=== PATIENT | female | born 1985 | race African-American/Black ===

== ENCOUNTER 2017-11-07 10:04 | Emergency (ER) | payer OTHER ==
[2017-11-07 10:10] VITALS: BP 104/67; PULSE 88; TEMP 98.6; BMI 28.9
[2017-11-07 10:57] LABS: HCG,QUALITATIVE URINE Positive
[2017-11-07 10:59] LABS: URINE APPEARANCE CLEAR; URINE BILIRUBIN NEGATIVE (<2.0 mg/dL); URINE COLOR STRAW; URINE GLUCOSE (UA) NEGATIVE (NEGATIVE); URINE KETONE NEGATIVE (NEGATIVE); URINE LEUK ESTERASE NEGATIVE (NEGATIVE); URINE NITRITE NEGATIVE (NEGATIVE); URINE PROTEIN NEGATIVE (NEGATIVE); URINE UROBILINOGEN NEGATIVE mg/dL (0.2-1.0)
--- NOTE | 2017-11-07 11:17 | PDOC ---
History of Present Illness - General Chief Complaint: Pain Stated Complaint: ABD PAIN () Time Seen by Provider: 11/07/17 10:15 History Source: Patient Exam Limitations: No Limitations - History of Present Illness Travel History: No Initial Comments: 11/07/17 11:15 32 yr female states 10 weeks noticed spotting yesterday light pink, no bleeding today has lower suprapubic pain and discomfort. Denies back pain neg nvd neg urinary complaints. uncomplicated so far. Quality: reports: cramping Abdominal Pain Onset Location: reports: suprapubic Pain Radiation: reports: no radiation Activities at Onset: reports: none Past History - Past Medical History Allergies/Adverse Reactions: Allergies Allergy/AdvReac Type Severity Reaction Status Date / Time No Known Allergies Allergy Verified 11/07/17 10:10 Home Medications: Ambulatory Orders Prenat 115/Iron Fum/Folic/Dss [ 19 Tablet] 1 each PO DAILY 11/07/17 COPD: No - Suicide/Smoking/Psychosocial Hx Smoking History: Never smoked *Physical Exam - Vital Signs Last Vital Signs Temp Pulse Resp BP Pulse Ox 98.6 F 88 18 104/67 100 11/07/17 10:07 11/07/17 10:07 11/07/17 10:07 11/07/17 10:07 11/07/17 10:07 - Physical Exam General Appearance: Yes: Nourished HEENT: positive: EOMI, AMILCAR Neck: positive: Supple Respiratory/Chest: positive: Lungs Clear, Normal Breath Sounds Cardiovascular: positive: Regular Rhythm, Regular Rate Gastrointestinal/Abdominal: positive: Normal Bowel Sounds, Tender (lower abd ), Soft, Tenderness. negative: Guarding Musculoskeletal: positive: Normal Inspection Extremity: positive: Normal Capillary Refill, Normal Inspection, Normal Range of Motion ED Treatment Course - ADDITIONAL ORDERS Additional order review: Laboratory Results 11/07/17 10:45 Urine Color Straw Urine Appearance Clear Urine pH 6.0 Ur Specific [place] 1.005 Urine Protein Negative Urine Glucose (UA) Negative Urine Ketones Negative Urine Blood Negative Urine Nitrite Negative Urine Bilirubin Negative Urine Urobilinogen Negative Ur Leukocyte Esterase Negative Urine HCG, Qual Positive - RADIOLOGY Radiology Studies Ordered: Category Date Time Status TRANSVAGINAL US PREG [US] Stat Ultrasound 11/07/17 10:47 Ordered Medical Decision Making - Medical Decision Making 11/07/17 11:16 cc: lower abd pain no vag bleeding or discharge, had some spotting yesterday will check UA US 11/07/17 13:04 US resulted and results discussed copy of the report given to patient she will follow with her flap curer this week pt is aware to return to ER for any worsening symptoms *DC/Admit/Observation/Transfer Diagnosis at time of Disposition: Subchorionic hematoma in first trimester Qualifiers: Fetus number: single or unspecified fetus Qualified Code(s): O41.8X10 - Other specified disorders of amniotic fluid and membranes, first trimester, not applicable or unspecified - Discharge Dispostion Disposition: HOME Condition at time of disposition: Good - Referrals Referrals: Alyx Garcia [Primary Care Provider] - - Patient Instructions Additional Instructions: please follow with your flap curer/OB doctor this week avoid heavy lifting or pushing until cleared by your doctor no sexual activity until cleared by your doctor Return to ER for any worsening pain or bleeding or any other concerns - Post Discharge Activity Forms/Work/School Notes: Back to Work
== END 2017-11-07 13:04 | disposition home or self-care (01) ==
LOC: JERFT 10:04
DX: O41.8X10 Other specified disorders of amniotic fluid and membranes, first trimester, not applicable or unspecified (principal); O26.891 Other specified pregnancy related conditions, first trimester; Z3A.10 10 weeks gestation of pregnancy
CPT/HCPCS: 76801-TC; 81003; 84703; 87086; 99281-25

== ENCOUNTER 2018-01-04 02:44 | Emergency (ER) | payer OTHER ==
[2018-01-04 03:28] VITALS: BP 101/55; PULSE 79; TEMP 97.4; BMI 28.7
--- NOTE | 2018-01-04 04:34 | PDOC ---
Attending Attestation - Resident Resident Name: Shilpa Pierre - ED Attending Attestation I have performed the following: I have examined & evaluated the patient, The case was reviewed & discussed with the resident, I agree w/resident's findings & plan, Exceptions are as noted - HPI HPI: 01/04/18 04:52 32 yo F presenting with pelvic pain which worsens with sitting or standing Pain is located bilaterally Symptoms began 6pm No prior episodes like this No discharge, no dysuria Saw bicycle rental clerk 3 weeks ago, was nml No nausea or vomiting No dizziness No h/o STD 01/04/18 04:55 - Physicial Exam PE: 01/04/18 04:54 GENERAL: The patient is in no acute distress. LUNGS: Breath sounds equal, clear to auscultation bilaterally. No wheezes, and no crackles. HEART:Regular rate and rhythm ABDOMEN: Soft, nontender, normoactive bowel sounds. EXTREMITIES: Normal range of motion NEUROLOGICAL: Cranial nerves II through XII grossly intact. Normal speech. No focal neurological deficits. MUSCULOSKELETAL: Back non-tender to palpation SKIN: Warm, Dry, normal turgor, no rashes or lesions noted. - Medical Decision Making Pt unable to stay in the ER for either her lab results or for an US She states that she has to picker feeder her kids and bring them to school She is leaving the ER AMA as we can not yet rule out possible causes of her pelvic pain She will be returning to the ER for re assessment this morning after dropping her children off to school Note: The patient insists on leaving the emergency dept and is signing out against medical advice. The patient understands the risks and complications that may result from the refusal of medical care and admission which includes and permanent disability. The patient has the mental capacity of understanding the risks of refusing care and is capable of making an informed decision. The patient was instructed to return to the emergency department should she change her mind regarding medical care or should her condition worsen. The patient signed the Against Medical Advice form.
[2018-01-04] MEDS ORDERED: ACETAMINOPHEN 325 MG TABLET (FP) PO ONE (05:01)
[2018-01-04] MEDS ORDERED: ACETAMINOPHEN 325 MG TABLET (FP) ONE (05:11)
--- NOTE | 2018-01-04 05:50 | PDOC ---
History of Present Illness - General Chief Complaint: Pain Stated Complaint: ABD PAIN, 18 WKS Time Seen by Provider: 01/04/18 04:32 History Source: Patient - History of Present Illness Initial Comments: 01/04/18 21:50 32F, G3T3L3, w/ no significant pmhx presents with 1 day history of pelvic pain. She rates the pain 8/10 and is worse when sitting/standing, but alleviated when laying down. She is currently 18 weeks (last seen CASINO CONTROLLER 3 weeks ago IUP confirmed by ultrasound). Her pelvic pain started while she was walking during walk. Admits to headache, but denies dizziness, n/v. She also complaints of associated F leg pain. Denies urinary/bowel symptoms, blood in urine/stool, vaginal discharge/bleeding. Pt currently takes Zyrtec for allergies and vitamins. PMHx: Denies PSHx: Denies FHx: Denies Social: Former smoker, quit 6 months ago, 2 cigarettes/day. 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 Denies recent travel. Past History - Past Medical History Allergies/Adverse Reactions: Allergies Allergy/AdvReac Type Severity Reaction Status Date / Time No Known Allergies Allergy Verified 01/04/18 09:28 Home Medications: Ambulatory Orders Prenat 115/Iron Fum/Folic/Dss [ 19 Tablet] 1 each PO DAILY 11/07/17 COPD: No - Suicide/Smoking/Psychosocial Hx Smoking History: Never smoked Have you smoked in the past 12 months: No Information on smoking cessation initiated: No Hx Alcohol Use: No Drug/Substance Use Hx: No Review of Systems - Review of Systems Able to Perform ROS?: Yes Is the patient limited Iranian proficient: No Constitutional: No: Chills, Fever HEENTM: No: Recent change in vision Respiratory: No: Shortness of Breath, Wheezing Cardiac (ROS): No: Chest Pain, Lightheadedness, Chest Tightness ABD/GI: No: Constipated, Diarrhea, Nausea, Vomiting : No: Burning, Dysuria, Discharge, Hematuria, Pain *Physical Exam - Vital Signs Last Vital Signs Temp Pulse Resp BP Pulse Ox 97.4 F L 79 19 101/55 L 98 01/04/18 02:45 01/04/18 02:45 01/04/18 02:45 01/04/18 02:45 01/04/18 02:45 - Physical Exam General Appearance: Yes: Nourished, Appropriately Dressed HEENT: positive: EOMI, AMILCAR, Normal Voice Neck: positive: Supple Cardiovascular: positive: Regular Rhythm, Regular Rate, S1, S2. negative: Edema , Murmur Vascular Pulses: Dorsalis-Pedis (R): 2+, Doralis-Pedis (L): 2+ Female Pelvic Exam: positive: normal external exam, cervical os closed, normal adnexa, discharge (white). 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 II-XII NML intact, Fully Oriented, Alert, Normal Response, Motor Strength 06/26 ED Treatment Course - LABORATORY CBC & Chemistry Diagram: 01/04/18 05:36 01/04/18 05:36 - RADIOLOGY Radiology Studies Ordered: Category Date Time Status LIMITED US [US] Stat Ultrasound 01/04/18 04:55 Ordered - Medications Given in the ED: ED Medications Discontinued Medications Generic Name Dose Route Start Last Admin Trade Name Freq PRN Reason Stop Dose Admin Acetaminophen 650 mg 01/04/18 05:01 01/04/18 05:14 Tylenol - PO 01/04/18 05:02 650 mg ONCE ONE Administration Medical Decision Making - Medical Decision Making 01/04/18 6:05 32F currently 18 weeks (G3T3L3) w/ no significant pmhx presents with 1 day history of pelvic pain. -Will obtain pelvic ultrasound to r/o acute pathology such as appendicitis, ovarian torsion, ruptured ovarian cyst, abscess. -CBC/CMP, U/A, UCx -Tylenol for pain ordered 01/04/18 6:30 -Pelvic exam perfomed, no CMT or adnexal tenderness. White discharge noted, culture taken and sent to lab. 01/04/18 6:35 -Pt stable. Informed pt of recommendation to get a ultrasound to r/o acute causes of new onset pelvic pain. Pt deferred ultrasound at this time as she needed to go home. Signed out AMA and explained risks of leaving prior to necessary work up. Advised patient to return to the ED if she has persistent or worsening symptoms. Case discussed with Dr. Myles (ED attending). -Shilpa Pierre, DO - PGY1 *DC/Admit/Observation/Transfer Diagnosis at time of Disposition: Pelvic pain - Discharge Dispostion Disposition: AGAINST MEDICAL ADVICE Condition at time of disposition: Good Decision to Admit order: No - Referrals - Patient Instructions Printed Discharge Instructions: DI for Pelvic Pain Additional Instructions: You were seen in the ED for complaints of pelvic pain. You were evaluated and recommended to have a ultrasound. You are signing out against medical advice. You have been made aware of the risks in doing so which conditions/complications including but not limited to untreated tubo-ovarian abscess, ovarian torsion, ruptured ovarian cyst, appendicitis, or . Please feel free to return to the Emergency Department at any time for further evaluation of your symptoms. - Post Discharge Activity
[2018-01-04 05:55] LABS: BASO % 0.5 % (0-2.0); EOS % 1.6 % (0-4.5); HEMATOCRIT 35.6 % (32.4-45.2); HEMOGLOBIN 11.5 GM/dL (10.7-15.3); LYMPH % 17.6 % (8-40); MCH 28.4 pg (25.7-33.7); MCHC 32.3 g/dl (32.0-36.0); MEAN PLT VOLUME 8.4 fl (7.5-11.1); MONO % 8.9 % (3.8-10.2); NEUT % 71.4 % (42.8-82.8); PLATELET COUNT 217 K/MM3 (134-434); RBC 4.05 M/mm3 (3.60-5.2); WHITE BLOOD COUNT 11.3 K/mm3 (4.0-10.0)
[2018-01-04 06:29] LABS: ALBUMIN 3.5 g/dl (3.4-5.0); ALK PHOS 68 U/L (45-117); ANION GAP 6 MMOL/L (8-16); BILIRUBIN,TOTAL 0.2 mg/dL (0.2-1); BLOOD UREA NITROGEN 9 mg/dL (7-18); CALCIUM 8.3 mg/dL (8.5-10.1); CHLORIDE 105 mmol/L (98-107); CO2 24 mmol/L (21-32); CREATININE 0.5 mg/dL (0.55-1.3); GLUCOSE,RANDOM 70 mg/dL (74-106); POTASSIUM 3.8 mmol/L (3.5-5.1); SGOT/AST 26 U/L (15-37); SGPT/ALT 41 U/L (13-61); SODIUM 135 mmol/L (136-145); TOT PROT 6.7 g/dl (6.4-8.2)
== END 2018-01-04 05:51 | disposition left against medical advice (07) ==
LOC: JER 02:44
DX: O26.892 Other specified pregnancy related conditions, second trimester (principal); R10.30 Lower abdominal pain, unspecified; Z3A.18 18 weeks gestation of pregnancy
CPT/HCPCS: 36415; 80053; 82550; 84484; 84703; 85025; 99281-25

== ENCOUNTER 2018-01-04 09:22 | Emergency (ER) | payer OTHER ==
[2018-01-04 09:31] VITALS: BMI 28.7
--- NOTE | 2018-01-04 10:03 | PDOC ---
History of Present Illness - General Chief Complaint: Pain, Acute Stated Complaint: ABD PAIN Time Seen by Provider: 01/04/18 09:52 History Source: Patient - History of Present Illness Timing/Duration: reports: other (yesterday) Abdominal Pain Onset Location: reports: other (lower abd) Past History - Past Medical History Allergies/Adverse Reactions: Allergies Allergy/AdvReac Type Severity Reaction Status Date / Time No Known Allergies Allergy Verified 01/04/18 09:28 Home Medications: Ambulatory Orders Prenat 115/Iron Fum/Folic/Dss [ 19 Tablet] 1 each PO DAILY 11/07/17 COPD: No - Immunization History Immunization Up to Date: Yes - Suicide/Smoking/Psychosocial Hx Smoking History: Never smoked Have you smoked in the past 12 months: No Information on smoking cessation initiated: No Hx Alcohol Use: No Drug/Substance Use Hx: No Substance Use Type: None Review of Systems - Review of Systems Constitutional: No: Chills, Fever ABD/GI: Yes: Abdominal cramping. No: Nausea, Vomiting : No: Dysuria, Flank Pain, Hematuria Musculoskeletal: No: Back Pain *Physical Exam - Vital Signs Last Vital Signs Temp Pulse Resp BP Pulse Ox 98.2 F 73 16 93/51 L 100 01/04/18 09:28 01/04/18 09:28 01/04/18 09:28 01/04/18 09:28 01/04/18 09:28 - Physical Exam General Appearance: Yes: Appropriately Dressed. No: Apparent Distress HEENT: positive: Normal Voice Neck: positive: Supple Respiratory/Chest: negative: Respiratory Distress Gastrointestinal/Abdominal: positive: Soft. negative: Tender Musculoskeletal: negative: CVA Tenderness Integumentary: positive: Dry, Warm Neurologic: positive: Fully Oriented, Alert, Normal Mood/Affect ED Treatment Course - RADIOLOGY Radiology Studies Ordered: Category Date Time Status OB LIMITED US [US] Stat Ultrasound 01/04/18 09:54 Ordered Medical Decision Making - Medical Decision Making 01/04/18 10:01 32-year-old female, , currently 18 weeks with unremarkable so far, follows up with OB at [facility] [place], here with mid lower abdominal pain since yesterday a.m., intermittent. No vaginal bleed, dysuria, flank pain , nausea, vomiting, fever or chills. Was seen in ED earlier this morning but left prior to UA and ultrasound because she had to take her kids to school. Now returns to continue evaluation. No change in sxs since prior ER visit. Of note labs were normal on prior visit. Pt well yessica w/ unremarkable exam. UA and US pending 01/04/18 13:53 Labs, UA and ultrasound were unremarkable. Of note, patient's blood pressure is 98/51. Based on prior records, patient runs ~ 100s/50s-60s. Patient asymptomatic at this time with no dizziness or weakness. Will discharge at this time to follow up with her OB. Reasons to return discussed with patient *DC/Admit/Observation/Transfer Diagnosis at time of Disposition: Abdominal pain affecting - Discharge Dispostion Disposition: HOME Condition at time of disposition: Good - Referrals - Patient Instructions Additional Instructions: Your labs, urine and ultrasound were normal. Take Tylenol every 6 hours as needed for pain and continue to follow-up with your OB - Post Discharge Activity
[2018-01-04 10:21] LABS: URINE APPEARANCE SLCLOUDY; URINE BILIRUBIN NEGATIVE (<2.0 mg/dL); URINE COLOR YELLOW; URINE GLUCOSE (UA) NEGATIVE (NEGATIVE); URINE KETONE 1+ (NEGATIVE); URINE LEUK ESTERASE NEGATIVE (NEGATIVE); URINE NITRITE NEGATIVE (NEGATIVE); URINE PROTEIN 1+ (NEGATIVE)
[2018-01-04 10:31] LABS: EPI CELLS FEW /HPF (FEW); URINE BACTERIA FEW /hpf (NONE SEEN); URINE MUCUS MANY
[2018-01-04 11:04] VITALS: BP 98/54; PULSE 78; TEMP 97.8
== END 2018-01-04 14:00 | disposition home or self-care (01) ==
LOC: JER 09:22
DX: O26.892 Other specified pregnancy related conditions, second trimester (principal); R10.30 Lower abdominal pain, unspecified; Z3A.18 18 weeks gestation of pregnancy
CPT/HCPCS: 76815; 81003; 81015; 99282-25

== ENCOUNTER 2018-03-10 21:16 | Emergency (ER) | payer OTHER ==
--- NOTE | 2018-03-10 21:24 | PDOC ---
Rapid Medical Evaluation Time Seen by Provider: 03/10/18 21:22 Medical Evaluation: Allergies Allergy/AdvReac Type Severity Reaction Status Date / Time No Known Allergies Allergy Verified 01/04/18 09:28 03/10/18 21:23 I have performed a brief in-person evaluation of this patient. The patient presents with a chief complaint of: Throat pain, ear pain, cough, 28 wks preg Pertinent physical exam findings: I have ordered the following: Rapid flu, rapid strep The patient will proceed to the ED for further evaluation.
[2018-03-10 21:27] VITALS: BMI 29.5
--- NOTE | 2018-03-10 21:28 | PDOC ---
History of Present Illness - General Chief Complaint: Cold Symptoms Stated Complaint: SINUS INFECTION-28 WEEKS Time Seen by Provider: 03/10/18 21:22 - History of Present Illness Initial Comments: 03/10/18 21:51 32-year-old female complaining of nasal congestion throat pain, left-sided facial pain for 3 days with occasional cough. Patient is 28 weeks and denies vaginal bleeding, abdominal pain, abdominal cramping, urinary symptoms. Patient reports " I feel like I have a sinus infection ". Past History - Past Medical History Allergies/Adverse Reactions: Allergies Allergy/AdvReac Type Severity Reaction Status Date / Time No Known Allergies Allergy Verified 03/10/18 21:26 Home Medications: Ambulatory Orders Prenat 115/Iron Fum/Folic/Dss [ 19 Tablet] 1 each PO DAILY 11/07/17 Amoxicillin - [Amoxicillin 875mg Tablet -] 875 mg PO BID #20 tablet 03/10/18 Sodium Chloride [Saline Nasal [place]] 30 ml NS QID PRN #1 spray 03/10/18 COPD: No - Immunization History Immunization Up to Date: Yes - Suicide/Smoking/Psychosocial Hx Smoking History: Never smoked Have you smoked in the past 12 months: No Information on smoking cessation initiated: No Hx Alcohol Use: No Drug/Substance Use Hx: No Substance Use Type: None Review of Systems - Review of Systems Able to Perform ROS?: Yes Is the patient limited Chilean proficient: No Constitutional: No: Symptoms Reported, See HPI, Chills, Diaphoresis, Fever, Loss of Appetite, Malaise, Night Sweats, Weakness, Weight Stable, Unintentional Wgt. Loss, Unexplained wgt Loss, Other HEENTM: Yes: Nose Congestion, Throat Pain Respiratory: Yes: Cough ABD/GI: No: Symptoms Reported, See HPI, Abdominal Distended, Abd. Pain w/ defecation, Blood Streaked Bowels, Constipated, Diarrhea, Difficulty Swallowing , Nausea, Poor Appetite, Poor Fluid Intake, Rectal Bleeding, Vomiting, Indigestion, Abdominal cramping, Tarry Stools, Other : No: Symptoms Reported, See HPI, Burning, Dysuria, Discharge, Frequency, Flank Pain, Hematuria, Incontinence, Pain, Urgency, Testicular Mass, Testicular Swelling, Lesions, Testicular Pain, Other *Physical Exam - Vital Signs Last Vital Signs Temp Pulse Resp BP Pulse Ox 98.6 F 90 18 108/68 98 03/10/18 21:24 03/10/18 21:24 03/10/18 21:24 03/10/18 21:24 03/10/18 21:24 - Physical Exam General Appearance: Yes: Appropriately Dressed HEENT: positive: Tonsillar Erythema (no exudate), Nasal Congestion, Other (+ right maxillary sinus tenderness, TM with dullness, no erythema). negative: TM Erythema Neck: negative: Lymphadenopathy (R), Lymphadenopathy (L) Respiratory/Chest: positive: Lungs Clear, Normal Breath Sounds Gastrointestinal/Abdominal: positive: Normal Bowel Sounds, Soft Musculoskeletal: positive: Normal Inspection Moderate Sedation - Procedure Monitoring Vital Signs: Procedure Monitoring Vital Signs Temperature 98.6 F 03/10/18 21:24 Pulse Rate 90 03/10/18 21:24 Respiratory Rate 18 03/10/18 21:24 Blood Pressure 108/68 03/10/18 21:24 O2 Sat by Pulse Oximetry (%) 98 03/10/18 21:24 Progress Note - Progress Note Progress Note: A: sinusitis P: rapid strep influenza Tylenol supportive care discussed with patients. *DC/Admit/Observation/Transfer Diagnosis at time of Disposition: Sinusitis Qualifiers: Sinusitis location: maxillary Chronicity: acute Recurrence: non-recurrent Qualified Code(s): J01.00 - Acute maxillary sinusitis, unspecified - Discharge Dispostion Disposition: HOME - Prescriptions Prescriptions: Amoxicillin - [Amoxicillin 875mg Tablet -] 875 mg PO BID #20 tablet Sodium Chloride [Saline Nasal Fajardo] 30 ml NS QID PRN #1 spray PRN Reason: Nasal Congestion - Referrals - Patient Instructions Printed Discharge Instructions: Sinusitis Additional Instructions: you may tylenol every 4-6 hours as needed for pain use the saline wash 4 times daily as needed take amoxicillin as prescribed follow up with your doctor as soon as possible. - Post Discharge Activity Forms/Work/School Notes: Back to Work
[2018-03-10] MEDS ORDERED: ACETAMINOPHEN 325 MG TABLET (FP) PO ONE (21:52)
[2018-03-10] MEDS ORDERED: ACETAMINOPHEN 325 MG TABLET (FP) ONE (21:56)
[2018-03-10 23:38] VITALS: BP 103/65; PULSE 71; TEMP 98.3
== END 2018-03-10 23:58 | disposition home or self-care (01) ==
LOC: JER 21:16
DX: O99.89 Other specified diseases and conditions complicating pregnancy, childbirth and the puerperium (principal); J01.00 Acute maxillary sinusitis, unspecified; Z3A.28 28 weeks gestation of pregnancy
CPT/HCPCS: 87070; 87804; 87880; 99281-25

== ENCOUNTER 2018-05-29 00:35 | Inpatient (IN) | payer OTHER ==
[2018-05-29] MEDS ORDERED: DEXTROSE 5%-LACTATED RINGERS 500 ML IV ONE (01:00)
[2018-05-29 01:40] LABS: BASO % 0.3 % (0-2.0); EOS % 0.8 % (0-4.5); HEMATOCRIT 38.9 % (32.4-45.2); HEMOGLOBIN 12.8 GM/dL (10.7-15.3); LYMPH % 20.9 % (8-40); MCH 29.7 pg (25.7-33.7); MCHC 32.9 g/dl (32.0-36.0); MEAN CELL VOLUME 90.3 fl (80-96); MEAN PLT VOLUME 9.7 fl (7.5-11.1); MONO % 9.9 % (3.8-10.2); NEUT % 68.1 % (42.8-82.8); PLATELET COUNT 175 K/MM3 (134-434); RBC 4.31 M/mm3 (3.60-5.2); WHITE BLOOD COUNT 10.9 K/mm3 (4.0-10.0)
[2018-05-29 01:56] LABS: INR 0.94 (0.83-1.09); PROTHROMBIN TIME (PATIENT) 11.1 SEC (9.7-13.0)
[2018-05-29 01:59] LABS: ACTIVATED PTT 32.7 SECONDS (25.2-36.5)
[2018-05-29] MEDS ORDERED: DEXTROSE 5%-LACTATED RINGERS 1,000 ML IV SCH (02:00)
[2018-05-29 02:08] LABS: ANION GAP 9 MMOL/L (8-16); BLOOD UREA NITROGEN 6 mg/dL (7-18); CALCIUM 8.5 mg/dL (8.5-10.1); CHLORIDE 106 mmol/L (98-107); CO2 20 mmol/L (21-32); CREATININE 0.5 mg/dL (0.55-1.3); GLUCOSE,RANDOM 80 mg/dL (74-106); POTASSIUM 3.9 mmol/L (3.5-5.1); SODIUM 135 mmol/L (136-145)
[2018-05-29] MEDS ORDERED: ELECTROLYTE-148 SOLN 1,000 ML IV SCH (04:45)
--- NOTE | 2018-05-29 04:46 | HP ---
Past Medical History - Admission Chief Complaint: Uterine Contractions History of Present Illness: 32yo @ 39.5wks by LMP/sono who presents with regular ctx. Seen earlier in the evening, discharged home after no cervical change after an hour of ambulation (previously long/2-3cm) No LOF. No VB. +FM Preg c/b marginal cord insertion, failed gtt, nl 3hr gtt History Source: Patient Limitations to Obtaining History: No Limitations - Past Medical History Pulmonary: No: Asthma, Bronchitis, Cancer, COPD, O2 Dependent, Pneumonia, Previously Intubated, Pulmonary Embolus, Pulmonary Fibrosis, Sleep Apnea, Other Gastrointestinal: No: Ascites, Cancer, Constipation, Crohn's Disease, Diverticulitis, Diverticulosis, Esophageal Varices, Gastritis, GERD, GI Bleed, Hemorrhoids, Hiatal Hernia, Inflamatory Bowel Disease, Irritable Bowel Disease, Pancreatitis, Peptic Ulcer Disease, Ulcerative Colitis, Other ...: 4 ...Para: 2 ...Term: 2 ...: 0 ...Spon : 0 ...Induced : 1 ...LMP: 08/24/17 ... Weeks Gestation by Dates: 39.5 ...EDC by Dates: 05/31/18 ...EDC by Sono: 05/31/18 Heme/Onc: Yes: Anemia Infectious Disease: No: AIDS, C-Diff, Herpes Zoster, HIV, MRSA, STD's, Tuberculosis, VREF, Other - Past Surgical History Past Surgical History: Yes: None Hx Myomectomy: No Hx Transabdominal Cerclage: No - Smoking History Smoking history: Never smoked Have you smoked in the past 12 months: No - Alcohol/Substance Use Hx Alcohol Use: No History of Substance Use: reports: None - Social History Usual Living Arrangement: Yes: With Spouse, With Significant Other History of Recent Travel: No Home Medications - Allergies Allergies/Adverse Reactions: Allergies Allergy/AdvReac Type Severity Reaction Status Date / Time No Known Allergies Allergy Verified 05/28/18 20:17 - Home Medications Home Medications: Ambulatory Orders Vitamins (Sjr) - 1 tab PO DAILY 05/28/18 Review of Systems - Review of Systems Constitutional: denies: No Symptoms, Chills, Diaphoresis, Fever, Lethargy, Loss of Appetite, Malaise, Night Sweats, Unintentional Wgt. Loss, Weakness, Other Cardiovascular: denies: No Symptoms, Chest Pain, Edema, Palpitations, Shortness of Breath, Other Respiratory: denies: No Symptoms, Cough, Exercise Intolerance, Hemoptysis, Orthopnea, PND, Snoring, SOB, SOB on Exertion, Wheezing, Other Gastrointestinal: denies: No Symptoms, Abdominal Pain, Bloating, Constipation, Diarrhea, Dysphagia, Indigestion, Melena, Nausea, Rectal Bleeding, Vomiting, Vomiting Blood, Other Genitourinary: denies: No Symptoms, Burning, Discharge, Dysuria, Flank Pain, Frequency, Hematuria, Incontinence, Lesions, Menses, Pain, Testicular Mass, Testicular Pain, Testicular Swelling, Urgency, Vaginal Bleeding, Other Physical Exam - Maternity Vital Signs: Vital Signs Temperature 97.8 F 05/29/18 01:20 Pulse Rate 69 05/29/18 01:20 Respiratory Rate 20 05/29/18 01:20 Blood Pressure 117/90 05/29/18 01:20 O2 Sat by Pulse Oximetry (%) - Abdominal Exam/OB Number of Fetuses: Single Presentation: Vertex Contractions: Yes Regularity: Irregular Intensity: Moderate Monitor Mode: External Heart Rate Location: [facility] Category: I Accelerations: Non-Uniform Decelerations: None - Vaginal Exam/OB Vaginal Bleediing: No Speculum Exam: No Dilatation (cm): 5 Effacement (%): 50 Amniotic Membrane Status: Intact Presentation: Vertex/Position Station: -3 - Physical Exam Edema: No - Labs Lab Results: CBC, BMP 05/29/18 01:15 05/29/18 01:15 Problem List - Problems (1) Uterine contractions Code(s): [id number] - Assessment/Plan 32yo @ 39.5wks who presents in labor Admit to L&D NPO, IVFs Cat I tracing AROM/pitocin prn Epidural for pain management Anticipate
[2018-05-29] MEDS ORDERED: FENTANYL/BUPIVACAINE/NS/PF - PCEA - 50 ML DISP.SYRIN EP ONE (05:09)
[2018-05-29 06:51] VITALS: BMI 30.7
[2018-05-29] MEDS ORDERED: NALOXONE HCL 0.4 MG/ML VIAL IVPUSH PRN (07:53)
[2018-05-29] MEDS ORDERED: FENTANYL/BUPIVACAINE/NS/PF - PCEA - 50 ML DISP.SYRIN EP SCH (08:00)
--- NOTE | 2018-05-29 09:50 | PN ---
Progress Note, Labor Vaginal Exam #1 Labor Exam Date: 05/29/18 Labor Exam Time: 09:49 Heart Rate (range): Cat I Dilatation: 8 Effacement (%): 100 Amniotic Membrane Status: Ruptured Presentation: Vertex/Position Station: -1 Remarks: AROM, clears Cat I tracing Anticipate JOHNY Cameron MD
--- NOTE | 2018-05-29 11:05 | PN ---
Progress Note, Labor Vaginal Exam #2 Labor Exam Date: 05/29/18 Labor Exam Time: 11:04 Heart Rate (range): Cat I Dilatation: 8 Effacement (%): 100 Amniotic Membrane Status: Ruptured Presentation: Vertex/Position Station: 0 Remarks: Getting more uncomfortable Ctx spaced out Start pitocin given lack of progress and infrequent ctx Cat I Anticipate JOHNY Cameron MD
[2018-05-29] MEDS ORDERED: OXYTOCIN 30 UNITS in 0.9% NS 30 UNIT/500 ML INFUS.BAG IVPB SCH (11:15)
--- NOTE | 2018-05-29 12:14 | PN ---
Progress Note, Labor Vaginal Exam #3 Labor Exam Date: 05/29/18 Labor Exam Time: 12:05 Heart Rate (range): Cat I Dilatation: 8 Effacement (%): 100 Amniotic Membrane Status: Ruptured Presentation: Vertex/Position Station: -1 Remarks: Pt very uncomfortable Still no progress over last 3 hours IUPC placed, increase pitocin to adequacy If no progress with next exam, discussed possibility of Delivery given lack of progress in this active phase of labor Matilde Cameron MD
[2018-05-29] MEDS ORDERED: BENZOCAINE 28 GM HEMORRHOIDAL OINTMENT TP PRN (12:28)
[2018-05-29] MEDS ORDERED: WITCH HAZEL 50% (TUCKS) 40 PAD/JAR PAD TP PRN (12:28)
[2018-05-29] MEDS ORDERED: BISACODYL 10 MG SUPP.RECT RC PRN (12:28)
[2018-05-29] MEDS ORDERED: METHYLERGONOVINE MALEATE 0.2 MG/1 ML AMP IM PRN (12:28)
[2018-05-29] MEDS ORDERED: BENZOCAINE 20% 57 GM BOTTLE TP PRN (12:28)
--- NOTE | 2018-05-29 12:29 | PN ---
Delivery - Delivery Vaginal Delivery: Spontaneous Type of Anesthesia: Epidural Episiotomy/Laceration: None EBL (cc): 250 Delivery, Single - Stages of Labor Date 1st Stage Initiatied: 05/29/18 Date 2nd Stage Initiated: 05/29/18 Date of Delivery: 05/29/18 Placenta: Yes: Spontaneous - Condition of Business Operations Specialist/Ceramics Test Engineer Present: No Infant Gender: Female Position: Right, OA - Feeding Plan Initial Plan: Elected not to breastfeed exclusively throughout hospitalization Remarks - Remarks Remarks: of VFI from PERCY position over intact perineum. Epidural anesthesia. 39 week gestation. No nuchal. No meconium. Spontaneous delivery of anterior shoulder and remaining body. Infant placed on maternal abdomen. Cord clamped and cut. Spontaneous delivery of intact placenta with 3VC. Normal insertion noted. Fundus firm. Perineum inspected, no lacerations. EBL 250ml. Mother and baby doing well. Yvette Cameron MD
[2018-05-29] MEDS ORDERED: OXYTOCIN 20 UNITS in 0.9% NS 20 UNIT/1,000 ML INFUS.BAG IV SCH (12:30)
[2018-05-29] MEDS: IBUPROFEN 600 MG TABLET (FP) PO PRN ×2 (17:40→21:33)
[2018-05-29] MEDS: ACETAMINOPHEN 325 MG TABLET (FP) PO PRN ×2 (17:41→21:44)
[2018-05-30 06:56] LABS: BASO % 0.3 % (0-2.0); EOS % 0.6 % (0-4.5); HEMATOCRIT 34.9 % (32.4-45.2); HEMOGLOBIN 11.4 GM/dL (10.7-15.3); LYMPH % 18.5 % (8-40); MCH 29.1 pg (25.7-33.7); MCHC 32.7 g/dl (32.0-36.0); MEAN CELL VOLUME 88.9 fl (80-96); MEAN PLT VOLUME 9.5 fl (7.5-11.1); MONO % 9.1 % (3.8-10.2); NEUT % 71.5 % (42.8-82.8); PLATELET COUNT 174 K/MM3 (134-434); RBC 3.93 M/mm3 (3.60-5.2); WHITE BLOOD COUNT 13.2 K/mm3 (4.0-10.0)
--- NOTE | 2018-05-30 08:16 | PN ---
Post Progress Note - Subjective Subjective: Doing well. Lochia c/w menses. No fevers/chills Post Day: 1 Type of Delivery: Vital Signs: Vital Signs Temperature 98.1 F 05/30/18 06:38 Pulse Rate 60 05/30/18 06:38 Respiratory Rate 20 05/30/18 06:38 Blood Pressure 107/48 L 05/30/18 06:38 O2 Sat by Pulse Oximetry (%) 99 05/29/18 13:05 Uterus: Yes: Fundus below umbilicus Incision: No: Dressing dry and intact, [place] intact, Sutures intact, Redness, Oozing, Other Lochia: Yes: Rubra Lochia, amount: Small Extremities: Yes: Calves non-tender Perineum: Yes: Intact Activity: Ambulating - Labs Labs: CBC WBC 13.2 K/mm3 (4.0-10.0) H 05/30/18 05:10 RBC 3.93 M/mm3 (3.60-5.2) 05/30/18 05:10 Hgb 11.4 GM/dL (10.7-15.3) 05/30/18 05:10 Hct 34.9 % (32.4-45.2) 05/30/18 05:10 MCV 88.9 fl (80-96) 05/30/18 05:10 MCH 29.1 pg (25.7-33.7) 05/30/18 05:10 MCHC 32.7 g/dl (32.0-36.0) 05/30/18 05:10 RDW 14.0 % (11.6-15.6) 05/30/18 05:10 Plt Count 174 K/MM3 (134-434) 05/30/18 05:10 MPV 9.5 fl (7.5-11.1) 05/30/18 05:10 Absolute Neuts (auto) 9.4 K/mm3 (1.5-8.0) H 05/30/18 05:10 Neutrophils % 71.5 % (42.8-82.8) 05/30/18 05:10 Lymphocytes % 18.5 % (8-40) 05/30/18 05:10 Monocytes % 9.1 % (3.8-10.2) 05/30/18 05:10 Eosinophils % 0.6 % (0-4.5) 05/30/18 05:10 Basophils % 0.3 % (0-2.0) 05/30/18 05:10 Nucleated RBC % 0 % (0-0) 05/30/18 05:10 Problem List - Problems (1) Uterine contractions Code(s): PGZ0140 - Assessment/Plan 32yo s/p Routine PP care OOB, ambulate Labs reviewed Anticipate d/c to home by PPD#2 Matilde Cameron MD
[2018-05-30] MEDS: PRENATAL VITAMINS W/ FOLIC ACID TABLET (FP) PO SCH (10:25)
[2018-05-30] MEDS: ACETAMINOPHEN 325 MG TABLET (FP) PO PRN ×2 (10:29→14:49)
[2018-05-30] MEDS: IBUPROFEN 600 MG TABLET (FP) PO PRN ×2 (10:30→14:49)
[2018-05-30] MEDS ORDERED: SENNOSIDES/DOCUSATE COMBO (SENNA PLUS) TABLET (UD) PO PRN (22:00)
--- NOTE | 2018-05-31 07:40 | DS ---
Physical Exam-[facility] Vital Signs: Vital Signs Temperature 98.3 F 05/30/18 22:45 Pulse Rate 79 05/30/18 22:45 Respiratory Rate 20 05/30/18 22:45 Blood Pressure 111/67 05/30/18 22:45 O2 Sat by Pulse Oximetry (%) 99 05/29/18 13:05 Constitutional: Yes: Well Nourished Eyes: Yes: Conjunctiva Clear HENT: Yes: Atraumatic Neck: Yes: Supple Cardiovascular: Yes: Regular Rate and Rhythm Respiratory: Yes: Regular Gastrointestinal: Yes: Normal Bowel Sounds ...Rectal Exam: Yes: WNL Renal/: Yes: WNL Pelvis: Yes: WNL External Genitalia: Yes: Normal Vaginal Exam: Yes: Normal Cervix: Yes: Normal Uterus: Yes: Normal ....Post : Yes: Uterus firm Neurological: Yes: Alert, Oriented ...Motor Strength: WNL Psychiatric: Yes: Alert, Oriented Labs: CBC, BMP 05/30/18 05:10 05/29/18 01:15 Delivery - Delivery Vaginal Delivery: Spontaneous Type of Anesthesia: Epidural Episiotomy/Laceration: None EBL (cc): 250 Delivery, Single - Stages of Labor Date 1st Stage Initiatied: 05/29/18 Time 1st Stage Initiated: 00:00 Date 2nd Stage Initiated: 05/29/18 Time 2nd Stage Initiated: 12:00 Date of Delivery: 05/29/18 Time of Delivery: 12:15 Time Placenta Delivered: 12:20 Placenta: Yes: Spontaneous - Condition of [employer] Present: No Gender: Female Weight: 6 lb 13 oz Position: Right, OA Total Hours ROM (Hrs/Mins): 2HRS 30 MINS - 1 Minute Total Score: 9 5 Minutes Total Score: 9 - [place] Feeding Plan Initial Plan: Elected not to breastfeed exclusively throughout hospitalization Discharge Summary Reason For Visit: LABOR ADMIT Current Active Problems Uterine contractions (Acute) Procedures: Principal: Normal spontaneous vaginal delivery Hospital Course: Routine care Condition: Stable - Instructions Diet, Activity, Other Instructions: Regular Diet Referrals: Yvette Cameron MD [Staff Physician] - Disposition: HOME - Home Medications Comprehensive Discharge Medication List: Ambulatory Orders Vitamins (Sjr) - 1 tab PO DAILY 05/28/18 Ibuprofen [Motrin -] 600 mg PO QID PRN #28 tablet 05/30/18
[2018-05-31 08:19] VITALS: BP 111/58; PULSE 59; TEMP 98.6
[2018-05-31] MEDS: IBUPROFEN 600 MG TABLET (FP) PO PRN (09:59)
[2018-05-31] MEDS: ACETAMINOPHEN 325 MG TABLET (FP) PO PRN (09:59)
[2018-05-31] MEDS: PRENATAL VITAMINS W/ FOLIC ACID TABLET (FP) PO SCH (10:00)
== END 2018-05-31 13:00 | disposition home or self-care (01) | DRG 560 ==
LOC: JDEL 00:35 → JLDR 04:20 → J3W 14:42
PROVIDERS: ADMIT Obstetrics & Gynecology; ATTEND Obstetrics & Gynecology
PROC: 10E0XZZ Delivery of Products of Conception, External Approach (ICD-10-PCS; principal; 2018-05-29)
DX: O80 Encounter for full-term uncomplicated delivery (principal); Z3A.39 39 weeks gestation of pregnancy; Z37.0 Single live birth
CPT/HCPCS: 36415; 59025; 59409; 80048; 85025; 85610; 85730; 86593; 86850; 86900; 86901

== ENCOUNTER 2020-08-31 20:24 | Emergency (ER) | payer OTHER ==
[2020-08-31 20:43] VITALS: BMI 30.2
[2020-08-31 20:50] VITALS: BP 103/69; PULSE 60; TEMP 98.3
== END 2020-08-31 23:38 | disposition home or self-care (01) ==
LOC: FER 20:24
DX: S76.011A Strain of muscle, fascia and tendon of right hip, initial encounter (principal)
CPT/HCPCS: 73523-TC-FY; 84703; 99284-25

== ENCOUNTER 2021-01-09 14:00 | Emergency (ER) | payer OTHER ==
[2021-01-09] MEDS ORDERED: KETOROLAC TROMETHAMINE 30 MG/1 ML VIAL IVPUSH ONE (14:36)
[2021-01-09 14:42] VITALS: BP 102/69; PULSE 81; TEMP 98.8; BMI 27.6
[2021-01-09 14:50] LABS: HCG,QUALITATIVE URINE Negative
[2021-01-09] MEDS ORDERED: KETOROLAC TROMETHAMINE 15 MG/ML VIAL ONE (15:04)
[2021-01-09 15:31] LABS: ALBUMIN 3.9 g/dl (3.4-5.0); BILIRUBIN,TOTAL 0.7 mg/dl (0.2-1); CALCIUM 8.5 mg/dl (8.5-10); CREATININE 0.7 mg/dl (0.55-1.3); MAGNESIUM 2.1 mg/dL (1.8-2.4); TOT PROT 6.5 g/dl (6.4-8.2)
[2021-01-09 15:35] LABS: BASO % 3.4 % (0-2.0); EOS % 0.6 % (0-4.5); HEMATOCRIT 35.5 % (32.4-45.2); HEMOGLOBIN 11.7 GM/dl (10.7-15.3); LYMPH % 15.1 % (8-40); MCH 28.4 pg (25.7-33.7); MEAN CELL VOLUME 86.1 fl (80-96); MEAN PLT VOLUME 8.4 fl (7.5-11.1); MONO % 5.3 % (3.8-10.2); NEUT % 75.6 % (42.8-82.8); PLATELET COUNT 245 10^3/uL (134-434); RBC 4.12 M/mm3 (3.60-5.2); RDW 13.4 % (11.6-15.6); WHITE BLOOD COUNT 7.2 K/mm3 (4.0-10.8)
[2021-01-09 15:51] LABS: EPITHELIAL CELLS MODERATE /hpf
== END 2021-01-09 18:03 | disposition home or self-care (01) ==
LOC: FER 14:00
PROC: 3E0333Z Introduction of Anti-inflammatory into Peripheral Vein, Percutaneous Approach (ICD-10-PCS; principal; 2021-01-09)
DX: N83.201 Unspecified ovarian cyst, right side (principal); R10.31 Right lower quadrant pain
CPT/HCPCS: 36415; 74177-TC; 76830-TC; 80053; 81003; 81015; 83690; 83735; 84703; 85025; 87086; 99285-25; Q9967

== ENCOUNTER 2022-08-03 20:34 | Emergency (ER) | payer OTHER ==
[2022-08-03 20:52] VITALS: BP 112/68; PULSE 68; RESP 16; TEMP 97.8; BMI 29.8
[2022-08-03 21:06] LABS: HCG,QUALITATIVE URINE Negative
[2022-08-03 21:20] LABS: HEMATOCRIT 39.5 % (32.4-45.2); MCH 29.8 pg (25.7-33.7); MEAN CELL VOLUME 90.4 fl (80-96); MEAN PLT VOLUME 8.7 fl (7.5-11.1); PLATELET COUNT 233.3 10^3/uL (134-434); RBC 4.37 10^6/uL (3.60-5.2); RDW 15.8 % (11.6-15.6)
[2022-08-03 21:29] LABS: ALBUMIN 4.1 g/dl (3.4-5.0); BILIRUBIN,TOTAL 0.5 mg/dl (0.2-1); CALCIUM 8.7 mg/dl (8.5-10); CREATININE 0.7 mg/dl (0.55-1.3); POTASSIUM 3.7 mmol/L (3.5-5.1); TOT PROT 6.8 g/dl (6.4-8.2)
[2022-08-03 21:43] LABS: PLATELET ESTIMATE ADEQUATE
[2022-08-03] MEDS ORDERED: KETOROLAC TROMETHAMINE 30 MG/1 ML VIAL IVPUSH ONE (21:48)
[2022-08-03] MEDS ORDERED: KETOROLAC TROMETHAMINE 30 MG/1 ML VIAL ONE (21:52)
== END 2022-08-04 01:09 | disposition home or self-care (01) ==
LOC: FER 20:34
PROC: 3E033NZ Introduction of Analgesics, Hypnotics, Sedatives into Peripheral Vein, Percutaneous Approach (ICD-10-PCS; principal; 2022-08-03)
DX: R10.2 Pelvic and perineal pain (principal)
CPT/HCPCS: 36415; 76830-TC; 80053; 81003; 81025; 84703; 85027; 99284-25

== ENCOUNTER 2023-02-10 13:51 | Emergency (ER) | payer OTHER ==
[2023-02-10 14:08] VITALS: BP 102/62; PULSE 107; RESP 17; TEMP 99.6; BMI 32.6
[2023-02-10] MEDS ORDERED: ACETAMINOPHEN 325 MG TABLET (FP) PO ONE (14:14)
[2023-02-10] MEDS ORDERED: ACETAMINOPHEN 325 MG TABLET (FP) ONE (14:22)
== END 2023-02-10 14:41 | disposition home or self-care (01) ==
LOC: FER 13:51
DX: O98.519 Other viral diseases complicating pregnancy, unspecified trimester (principal); U07.1 COVID-19; O99.512 Diseases of the respiratory system complicating pregnancy, second trimester; J06.9 Acute upper respiratory infection, unspecified; O26.892 Other specified pregnancy related conditions, second trimester; R05.9 Cough, unspecified; R09.81 Nasal congestion; R53.1 Weakness
CPT/HCPCS: 0241U-QW; 99283-25

== ENCOUNTER 2023-05-17 09:20 | Inpatient (IN) | payer OTHER ==
[2023-05-17 10:27] VITALS: BMI 32.6
[2023-05-17 11:21] LABS: BASO % 0.4 % (0-2.0); EOS % 0.6 % (0-4.5); HEMATOCRIT 34.7 % (32.4-45.2); HEMOGLOBIN 11.6 GM/dL (10.7-15.3); LYMPH % 17.9 % (8-40); MCH 28.5 pg (25.7-33.7); MCHC 33.3 g/dl (32.0-36.0); MEAN CELL VOLUME 85.5 fl (80-96); NEUT % 73.1 % (42.8-82.8); PLATELET COUNT 193 10^3/uL (134-434); RBC 4.06 M/mm3 (3.60-5.2); RDW 15.3 % (11.6-15.6)
[2023-05-17 11:28] LABS: INR 1.03 (0.83-1.09)
[2023-05-17 11:30] LABS: ACTIVATED PTT 30.8 SECONDS (25.2-36.5)
[2023-05-17] MEDS: ELECTROLYTE-148 SOLN 1,000 ML IV SCH (11:30)
[2023-05-17 11:50] LABS: CALCIUM 8.3 mg/dL (8.5-10.1)
[2023-05-17 11:51] LABS: BLOOD UREA NITROGEN 7.6 mg/dL (7-18)
[2023-05-17 11:54] LABS: CREATININE 0.5 mg/dL (0.55-1.3)
[2023-05-17] MEDS ORDERED: PROMETHAZINE HCL 25 MG/1 ML VIAL ONE (12:04)
[2023-05-17] MEDS ORDERED: BUTORPHANOL TARTRATE 2 MG/ML VIAL ONE (12:04)
[2023-05-17] MEDS: PROMETHAZINE HCL 25 MG/1 ML VIAL IVPB ONE (12:20)
[2023-05-17] MEDS: BUTORPHANOL TARTRATE 2 MG/ML VIAL IVPB PRN (12:20)
[2023-05-17 12:42] LABS: HIV INTERPRETATION NEGATIVE (NEGATIVE)
[2023-05-17] MEDS ORDERED: FENTANYL/BUPIVACAINE/NS/PF - PCEA - 50 ML DISP.SYRIN EP ONE (19:08)
[2023-05-17] MEDS: FENTANYL/BUPIVACAINE/NS/PF - PCEA - 50 ML DISP.SYRIN EP SCH ×2 (19:28→20:14)
[2023-05-17] MEDS ORDERED: NALOXONE HCL 0.4 MG/ML VIAL IVPUSH PRN (19:56)
[2023-05-18] MEDS ORDERED: FENTANYL/BUPIVACAINE/NS/PF - PCEA - 50 ML DISP.SYRIN EP ONE (00:06)
[2023-05-18] MEDS ORDERED: OXYTOCIN 30 UNITS in 0.9% NS 30 UNIT/500 ML INFUS.BAG IVPB ONE ×2 (00:13→01:46)
[2023-05-18] MEDS: OXYTOCIN 30 UNITS in 0.9% NS 30 UNIT/500 ML INFUS.BAG IVPB SCH (00:15)
[2023-05-18] MEDS ORDERED: SENNOSIDES/DOCUSATE COMBO (SENNA PLUS) TABLET (UD) PO PRN (01:40)
[2023-05-18] MEDS ORDERED: METHYLERGONOVINE MALEATE 0.2 MG/1 ML AMP IM PRN (01:40)
[2023-05-18] MEDS ORDERED: morphine SULFATE/PF 1 MG/2 ML (2cc Syringe - QUVA) ONE (01:48)
[2023-05-18] MEDS ORDERED: FENTANYL CITRATE/PF 50 MCG/ML VIAL ONE (01:49)
[2023-05-18] MEDS ORDERED: AZITHROMYCIN IVPB 500 MG/250 ML BAG IVPB ONE (02:05)
[2023-05-18] MEDS ORDERED: ceFAZolin SODIUM 1 GM VIAL ONE (02:07)
[2023-05-18 02:51] LABS: CORD BASE EXCESS -4.7 mmol/L (0-2); CORD HCO3 21.8 mmHg (20-29); CORD PCO2 45.1 mmHg (30-78); CORD pH 7.302 (7.14-7.44)
[2023-05-18 02:54] LABS: CORD HCO3 24.4 mmHg (20-29); CORD PCO2 65.6 mmHg (30-78); CORD pH 7.188 (7.14-7.44)
[2023-05-18] MEDS: OXYTOCIN 20 UNITS in 0.9% NS 20 UNIT/1,000 ML INFUS.BAG IV SCH (04:00)
[2023-05-18] MEDS ORDERED: OXYTOCIN 20 UNITS in 0.9% NS 20 UNIT/1,000 ML INFUS.BAG IV ONE (04:01)
[2023-05-18] MEDS: IBUPROFEN 800 MG/8 ML IJ IVPB PRN (04:30)
[2023-05-18] MEDS ORDERED: IBUPROFEN 800 MG/8 ML IJ IVPB ONE (04:43)
[2023-05-18] MEDS ORDERED: ONDANSETRON 4 MG/2 ML VIAL IVPB PRN (05:47)
[2023-05-18] MEDS: FERROUS SO4 325 MG TABLET (FP) PO SCH (11:46)
[2023-05-18] MEDS: PRENATAL VITAMINS W/ FOLIC ACID TABLET (FP) PO SCH (12:18)
[2023-05-18] MEDS ORDERED: oxyCODONE HCL 5 MG TABLET PO PRN ×2 (13:41)
[2023-05-18] MEDS: SIMETHICONE 80 MG TAB.CHEW (FP) PO PRN (17:26)
[2023-05-19] MEDS: IBUPROFEN 600 MG TABLET (FP) PO PRN (01:19)
[2023-05-19] MEDS ORDERED: BISACODYL 10 MG SUPP.RECT RC PRN (01:41)
[2023-05-19 06:46] LABS: BASO % 0.6 % (0-2.0); HEMATOCRIT 28.8 % (32.4-45.2); HEMOGLOBIN 9.5 GM/dL (10.7-15.3); MCH 28.4 pg (25.7-33.7); MCHC 32.8 g/dl (32.0-36.0); MEAN CELL VOLUME 86.6 fl (80-96); MEAN PLT VOLUME 8.8 fl (7.5-11.1); MONO % 9.4 % (3.8-10.2); PLATELET COUNT 167 10^3/uL (134-434); RBC 3.33 M/mm3 (3.60-5.2); RDW 15.4 % (11.6-15.6)
[2023-05-19] MEDS: ACETAMINOPHEN 325 MG TABLET (FP) PO PRN (09:37)
[2023-05-19 23:16] VITALS: RESP 18
[2023-05-21 06:23] LABS: BASO % 0.6 % (0-2.0); EOS % 2.1 % (0-4.5); HEMATOCRIT 29.1 % (32.4-45.2); HEMOGLOBIN 9.5 GM/dL (10.7-15.3); LYMPH % 23.8 % (8-40); MCH 28.1 pg (25.7-33.7); MCHC 32.8 g/dl (32.0-36.0); MEAN CELL VOLUME 85.7 fl (80-96); MEAN PLT VOLUME 8.5 fl (7.5-11.1); MONO % 8.3 % (3.8-10.2); NEUT % 65.2 % (42.8-82.8); PLATELET COUNT 199 10^3/uL (134-434); RBC 3.39 M/mm3 (3.60-5.2); RDW 15.3 % (11.6-15.6); WHITE BLOOD COUNT 6.9 K/mm3 (4.0-10.0)
[2023-05-21 08:45] VITALS: BP 104/67; PULSE 65; TEMP 98
== END 2023-05-21 12:10 | disposition home or self-care (01) | DRG 540 ==
LOC: JLDR 09:20 → J3W 05-18 05:10
PROVIDERS: ADMIT Obstetrics & Gynecology; ATTEND Obstetrics & Gynecology
PROC: 10D00Z1 Extraction of Products of Conception, Low, Open Approach (ICD-10-PCS; principal; 2023-05-18)
DX: O76 Abnormality in fetal heart rate and rhythm complicating labor and delivery (principal); O61.8 Other failed induction of labor; Z3A.39 39 weeks gestation of pregnancy; Z37.0 Single live birth
CPT/HCPCS: 36415; 36600; 80048; 82803; 85025; 85610; 85730; 86780; 86850; 86900; 86901; 87389; 88307-TC; 94010